=== PATIENT | male | born 1930 | race Caucasian/White ===

== ENCOUNTER → 2018-08-28 | Outpatient (CLI) | payer MEDICARE ==
[~2018-08-28] MED LIST: REGADENOSON 0.4 MG/5 ML PF SYG IVP SCH
== END | disposition home or self-care (01) ==
LOC: SHCH 08:55
PROVIDERS: ATTEND Internal Medicine Cardiovascular Disease
DX: I20.8 Other forms of angina pectoris (principal)
CPT/HCPCS: 78452; 93017; 96374; A9500 ×2; J2785

== ENCOUNTER 2018-10-02 05:39 | Day surgery (SDC) | payer MEDICARE ==
[2018-09-29 11:42] VITALS: BP 125/64
[2018-09-29 11:49] LABS: APPEARANCE,URINE Clear (CLEAR); BILIRUBIN,URINE Negative (NEGATIVE); COLOR,URINE Yellow (YELLOW); GLUCOSE, URINE (UA) Negative (NEGATIVE); KETONES,URINE Negative (NEGATIVE); LEUKOCYTE ESTERASE ,URINE Negative (NEGATIVE); NITRATE,URINE Negative (NEGATIVE); OCCULT BLOOD,URINE Negative (NEGATIVE); PROTEIN,URINE Negative (NEGATIVE)
[2018-09-29 11:51] LABS: BASOPHILS % (AUTO) 0.2 % (0.0-5.0); EOSINOPHILS % (AUTO) 2.2 % (0.0-8.0); HEMATOCRIT 33.4 % (42-54); MEAN CORPUSCULAR HGB CONC 33.6 g/dL (32.0-36.0); MEAN CORPUSCULAR VOLUME 89.5 fL (79-99); MONOCYTES % (AUTO) 7.4 % (3.0-13.0); NEUTROPHILS % (AUTO) 72.2 % (40.0-77.0); NUCLEATED RED BLOOD CELLS 0.1 % (0.0-0.19); PLATELET COUNT (AUTO) 165 K/uL (130-400); RED BLOOD CELL COUNT(AUTO) 3.73 MIL/uL (4.50-6.20); RED CELL DISTRIBUTION WIDTH 13.5 % (11.0-15.5); WHITE BLOOD COUNT (AUTO) 5.2 K/uL (4.8-10.8)
[2018-09-29 12:03] LABS: PARTIAL THROMBOPLASTIN TIME 34.8 SEC (26.3-35.5); POTASSIUM 5.1 mmol/L (3.5-5.1); PROTHROMBIN TIME 10.5 SEC (9.6-11.6)
--- NOTE | 2018-09-29 15:40 | NUR ---
BMP reported Cr 2.0 drawn 09/29/[address] Salazar, new orders to make patient #3, hydration with NS 100ml/hr to start upon arrival
[2018-10-02] VITALS (11 sets, daily range): BP systolic 127–154; BP diastolic 50–73
[~2018-10-02] VITALS: Ht 167.6 cm; Wt 58.4 kg
[~2018-10-02 05:39] MED LIST changes: +AEC81 PO; +AMLO2.5T4 PO; +ASCO500C18 PO; +CALC625T31 PO; +CHOL100018 PO; +CYAN-35 PO; +DICL2100G TP; +DOCU50CA15 PO; +ECHI350C PO; +ISOS120T14 PO; +LECI400C4 PO; +MAGN400T40 PO; +METF-444 PO; +METO100T14 PO; +NITR0.4T50 SL; +OMEP20TA25 PO; +POLY454P5 MC; -REGADENOSON 0.4 MG/5 ML PF SYG IVP SCH; +SIMV20TA6 PO; +TRAM50TA4 PO
[2018-10-02] MEDS ORDERED: SODIUM CHLORIDE 0.9% 1000ML 1,000 ML IV SCH (06:00)
[2018-10-02] MEDS ORDERED: IOHEXOL-350 50ML VIAL IV ONE (09:49)
[2018-10-02] MEDS ORDERED: IOHEXOL 350 MG/ML 100ML INFUS..BTL IV ONE (09:49)
[2018-10-02] MEDS ORDERED: LIDOCAINE HCL 2% 20ML ONE (09:49)
[2018-10-02] MEDS ORDERED: MIDAZOLAM HCL 1 MG/ML 2ML VIAL ONE (10:25)
[2018-10-02] MEDS ORDERED: GLUCAGON 1MG KIT 1 MG ML IM PRN (11:00)
[2018-10-02] MEDS ORDERED: DEXTROSE 50%-WATER 50 ML DISP.SYRIN IV PRN (11:00)
== END 2018-10-02 16:10 | disposition home or self-care (01) ==
LOC: DAH 05:39
PROVIDERS: ATTEND Internal Medicine Cardiovascular Disease
DX: I25.118 Atherosclerotic heart disease of native coronary artery with other forms of angina pectoris (principal); K21.9 Gastro-esophageal reflux disease without esophagitis; E78.5 Hyperlipidemia, unspecified; Z88.2 Allergy status to sulfonamides; Z79.899 Other long term (current) drug therapy; Z98.890 Other specified postprocedural states; D69.6 Thrombocytopenia, unspecified; I10 Essential (primary) hypertension; I44.7 Left bundle-branch block, unspecified; Z79.84 Long term (current) use of oral hypoglycemic drugs; R73.9 Hyperglycemia, unspecified
CPT/HCPCS: 36415; 71045; 80048; 81003; 82948 ×2; 85025; 85610; 85730; 93005; 93458; A4606; C1760; C1894; J1644; J2250; J3490; J7030; Q9965; Q9967 ×2; 99156; 99157

== ENCOUNTER → 2018-10-04 | Outpatient (CLI) | payer MEDICARE | END | disposition home or self-care (01) | LOC: RAH 08:53 | PROVIDERS: ATTEND Internal Medicine | DX: N13.30 Unspecified hydronephrosis (principal); N28.1 Cyst of kidney, acquired | CPT/HCPCS: 76700 ==

== ENCOUNTER 2018-10-20 09:20 | Inpatient (IN) | payer MEDICARE | END 2018-10-27 18:00 | disposition home or self-care (01) | LOC: DAHIP 09:20 → 2DH 10-22 12:20 → 2CV 14:50 → 2CH 10-21 16:26 | PROC: 02100Z9 Bypass Coronary Artery, One Artery from Left Internal Mammary, Open Approach (ICD-10-PCS; principal; 2018-10-20 11:00) | PROC: 021109W Bypass Coronary Artery, Two Arteries from Aorta with Autologous Venous Tissue, Open Approach (ICD-10-PCS; 2018-10-20 11:00) | DX: I25.119 Atherosclerotic heart disease of native coronary artery with unspecified angina pectoris (principal); N17.9 Acute kidney failure, unspecified; E11.9 Type 2 diabetes mellitus without complications; E78.5 Hyperlipidemia, unspecified; I25.5 Ischemic cardiomyopathy; N18.9 Chronic kidney disease, unspecified; E11.22 Type 2 diabetes mellitus with diabetic chronic kidney disease; I13.10 Hypertensive heart and chronic kidney disease without heart failure, with stage 1 through stage 4 chronic kidney disease, or unspecified chronic kidney disease; E87.5 Hyperkalemia; R53.81 Other malaise; D69.6 Thrombocytopenia, unspecified ==

== ENCOUNTER → 2018-11-17 | Outpatient (CLI) | payer MEDICARE ==
[~2018-11-17] MED LIST changes: -AEC81 PO; +AMIO200T44 PO; -AMLO2.5T4 PO; +ASPI-891 PO; -CYAN-35 PO; +FERS325 PO; +FOLI1TAB15 PO; -ISOS120T14 PO; -METO100T14 PO; +METO25 PO
== END | disposition home or self-care (01) ==
LOC: RAH 08:23
PROVIDERS: ATTEND Internal Medicine Cardiovascular Disease
DX: I35.1 Nonrheumatic aortic (valve) insufficiency (principal); I25.10 Atherosclerotic heart disease of native coronary artery without angina pectoris; Z95.1 Presence of aortocoronary bypass graft
CPT/HCPCS: 93306

== ENCOUNTER 2019-01-26 06:30 | Day surgery (SDC) | payer MEDICARE ==
[2019-01-24 14:44] LABS: BASOPHILS % (AUTO) 0.3 % (0.0-5.0); EOSINOPHILS % (AUTO) 2.8 % (0.0-8.0); HEMATOCRIT 29.5 % (42-54); MEAN CORPUSCULAR HEMOGLOBIN 30.7 pg (27.0-33.0); MEAN CORPUSCULAR HGB CONC 33.4 g/dL (32.0-36.0); MEAN CORPUSCULAR VOLUME 92.1 fL (79-99); MONOCYTES % (AUTO) 6.7 % (3.0-13.0); NEUTROPHILS % (AUTO) 72.2 % (40.0-77.0); PLATELET COUNT (AUTO) 127 K/uL (130-400); RED BLOOD CELL COUNT(AUTO) 3.21 MIL/uL (4.50-6.20); WHITE BLOOD COUNT (AUTO) 4.5 K/uL (4.8-10.8)
[2019-01-24 15:39] VITALS: BP 106/51
--- NOTE | 2019-01-25 15:47 | NUR ---
labs abnormal lab fax to DR. Mckoy . as per process machine operator's request ,so can review. Waiting for further orders if any.
[~2019-01-26] VITALS: Ht 167.6 cm; Wt 57.6 kg
[2019-01-26] VITALS (16 sets, daily range): BP systolic 146–163; BP diastolic 68–78
[~2019-01-26 06:30] MED LIST changes: -AMIO200T44 PO; +CALC625T PO; -CALC625T31 PO; -CHOL100018 PO; -FERS325 PO; -FOLI1TAB15 PO; -TRAM50TA4 PO
[2019-01-26] MEDS ORDERED: SODIUM CHLORIDE 0.9% 1000ML 1,000 ML IV ONE (06:43)
[2019-01-26] MEDS ORDERED: CEFTRIAXONE SODIUM 1 GM ONE (06:43)
[2019-01-26] MEDS ORDERED: IOHEXOL-350 50ML VIAL IV ONE (07:50)
[2019-01-26] MEDS ORDERED: CEFTRIAXONE SODIUM 1 GM IVP ONE (08:00)
[2019-01-26] MEDS ORDERED: ACET-66 PO (08:05)
[2019-01-26] MEDS ORDERED: PROPOFOL 10 MG/ML 20ML VIAL IV ONE (09:45)
[2019-01-26] MEDS ORDERED: LIDOCAINE PF 2% 5ML ABBOJECT ONE (09:45)
[2019-01-26] MEDS ORDERED: FENTANYL CITRATE PF 50 MCG/1 ML 2ML VIAL ONE (09:45)
[2019-01-26] MEDS ORDERED: PHENAZOPYRIDINE HCL 200 MG TABLET ONE (11:47)
== END 2019-01-26 12:41 | disposition home or self-care (01) ==
LOC: DAH 06:30
PROVIDERS: ATTEND Urology
DX: C67.3 Malignant neoplasm of anterior wall of bladder (principal); N13.39 Other hydronephrosis; N35.919 Unspecified urethral stricture, male, unspecified site; E11.9 Type 2 diabetes mellitus without complications; I25.10 Atherosclerotic heart disease of native coronary artery without angina pectoris; K21.9 Gastro-esophageal reflux disease without esophagitis; E78.00 Pure hypercholesterolemia, unspecified; I10 Essential (primary) hypertension; I25.2 Old myocardial infarction; Z95.1 Presence of aortocoronary bypass graft; Z85.46 Personal history of malignant neoplasm of prostate; Z98.890 Other specified postprocedural states; Z79.84 Long term (current) use of oral hypoglycemic drugs; Z79.899 Other long term (current) drug therapy; Z88.2 Allergy status to sulfonamides
CPT/HCPCS: 36415; 52234; 52332; 74420; 80048; 82948 ×2; 85025; 88305; A4344; A4358; A4510; A4600; C1758; C1769; J0696; J2001; J2704; J3010; J7030; J7120; Q9967

== ENCOUNTER 2019-02-27 14:03 | Emergency (ER) | payer MEDICARE ==
[~2019-02-27 14:03] MED LIST changes: +ACET-66 PO; -METF-444 PO
[2019-02-27 14:35] LABS: APPEARANCE,URINE Clear (CLEAR); BASOPHILS % (AUTO) 0.3 % (0.0-5.0); BILIRUBIN,URINE Negative (NEGATIVE); COLOR,URINE Yellow (YELLOW); EOSINOPHILS % (AUTO) 1.4 % (0.0-8.0); GLUCOSE, URINE (UA) Negative (NEGATIVE); HEMATOCRIT 32.5 % (42-54); KETONES,URINE Negative (NEGATIVE); LEUKOCYTE ESTERASE ,URINE Trace (NEGATIVE); MEAN CORPUSCULAR HEMOGLOBIN 29.8 pg (27.0-33.0); MEAN CORPUSCULAR HGB CONC 33.2 g/dL (32.0-36.0); MEAN CORPUSCULAR VOLUME 89.9 fL (79-99); NEUTROPHILS % (AUTO) 79.3 % (40.0-77.0); NITRATE,URINE Negative (NEGATIVE); OCCULT BLOOD,URINE Negative (NEGATIVE); PH,URINE 5.5 (5.0-8.0); PLATELET COUNT (AUTO) 203 K/uL (130-400); PROTEIN,URINE Negative (NEGATIVE); RED BLOOD CELL COUNT(AUTO) 3.61 MIL/uL (4.50-6.20); WHITE BLOOD COUNT (AUTO) 7.4 K/uL (4.8-10.8)
[2019-02-27 14:42] LABS: BACTERIA,URINE Few /HPF (None Seen); SQUAMOUS EPITHELIAL CELL,UR 0-2 /HPF (0-2); WBC,URINE 0-1 /HPF (0-1)
[2019-02-27 14:47] LABS: CREATININE 1.8 mg/dL (0.5-1.5)
[2019-02-27 14:52] LABS: ALBUMIN 3.7 g/dL (3.5-5.0); BILIRUBIN,TOTAL 0.6 mg/dL (0.2-1.0); TOTAL PROTEIN, SERUM 7.2 g/dL (6.0-8.3)
[2019-02-27] MEDS ORDERED: DIATR MEGLU/DIATRIZOATE SODIUM 30 ML BOTTLE ONE (15:31)
[2019-02-27] MEDS ORDERED: BISACODYL 10 MG SUPP.RECT RC ONE (18:47)
== END 2019-02-27 19:50 | disposition home or self-care (01) ==
LOC: EDH 14:03
DX: K59.00 Constipation, unspecified (principal); N13.30 Unspecified hydronephrosis; E11.9 Type 2 diabetes mellitus without complications; Z85.51 Personal history of malignant neoplasm of bladder; Z95.1 Presence of aortocoronary bypass graft; Z88.2 Allergy status to sulfonamides
CPT/HCPCS: 36415; 71045; 74176; 80053; 81001; 82150; 83690; 85025; 85651; 93005; 99285; Q9963

== ENCOUNTER → 2019-03-14 | Outpatient (CLI) | payer MEDICARE | END | disposition home or self-care (01) | LOC: SHCH 12:37 | PROVIDERS: ATTEND Internal Medicine Cardiovascular Disease | DX: I31.3 Pericardial effusion (noninflammatory) (principal); I25.10 Atherosclerotic heart disease of native coronary artery without angina pectoris | CPT/HCPCS: 93306 ==

== ENCOUNTER → 2019-03-19 | Outpatient (CLI) | payer MEDICARE | END | disposition home or self-care (01) | LOC: RAH 09:10 | PROVIDERS: ATTEND Internal Medicine | DX: R18.8 Other ascites (principal); N28.1 Cyst of kidney, acquired; N13.39 Other hydronephrosis | CPT/HCPCS: 76700 ==